=== PATIENT | male | born 1950 | race Caucasian/White ===

== ENCOUNTER 2016-11-06 10:04 | Day surgery (SDC) | payer OTHER ==
--- NOTE | 2016-11-03 12:23 | GHP ---
[f rep st] HISTORY AND PHYSICAL DATE OF ADMISSION: 11/06/2016 HISTORY OF PRESENT ILLNESS: The patient is a 65-year-old male who comes to our office for the first time after noticing an inguinal mass on the right side. It does not cause him any pain. He has no g enitourinary or gastrointestinal symptoms. He has never had surgery in this area of his body. He un derstands he might have a hernia and is trying to fit in his surgery between ski trips. ALLERGIES: No known drug allergies. MEDICATIONS: Methadone for restless legs, Lyrica, Synthroid, Wellbutrin, Xanax, Celebrex. ALLERGIES: No known drug allergies. SOCIAL HISTORY: The patient works in [employer]. He is with 4 children. PAST SURGICAL HISTORY: None. REVIEW OF SYSTEMS: He has negative 10-point systems. PHYSICAL EXAMINATION: GENERAL: The patient is a very pleasant male in no apparent distress. HEAD A ND NECK: Normocephalic, atraumatic. CHEST: CTA bilaterally. HEART: Regular rhythm and rate. ABD OMEN: Soft, nontender. There is a right inguinal mass that is soft and reducible, consistent with r ight inguinal hernia. EXTREMITIES: Normal pulses. No edema. IMPRESSION: 65-year-old male with right inguinal hernia. RECOMMENDATIONS: Laparoscopic right inguinal hernia repair was discussed with the patient in detail, including the risks of recurrence, infection, nerve injury, scrotal edema, pain. Also, we emphasize d the lifting/activity restrictions with this patient, as he does have a busy spring planned, with a couple of ski trips and fishing trips. The patient understands he will not be able to lift anything heavy for approximately 6 weeks. /[id number]/MODL
[~2016-11-06 10:04] MED LIST: ceFAZolin 2 GM/DEXTROSE 100 ML IV ONE
[2016-11-06] MEDS ORDERED: CEFAZOLIN 2 GM/DEXTROSE/100 ML BAG IV ONE (10:46)
[2016-11-06] MEDS ORDERED: LR 1,000 ML IV ONE (10:56)
[2016-11-06] MEDS ORDERED: BUPIVACAINE 0.5% 30 ML SDV ONE (10:59)
[2016-11-06] MEDS ORDERED: fentaNYL 250 MCG/5 ML INJ ONE (11:32)
[2016-11-06] MEDS ORDERED: PROPOFOL/EMULSION 500 MG/50 ML BOTTLE IV ONE (11:33)
[2016-11-06] MEDS ORDERED: MIDAZOLAM 2 MG/2 ML VIAL ONE (11:36)
[2016-11-06] MEDS ORDERED: ONDANSETRON 4 MG/2 ML VIAL ONE (11:39)
[2016-11-06] MEDS ORDERED: DEXAMETHASONE 4 MG/ML VIAL ONE (11:39)
[2016-11-06] MEDS ORDERED: ROCURONIUM 50 MG/5 ML VIAL ONE (11:39)
[2016-11-06] MEDS ORDERED: LIDOCAINE 2% 5 ML SDV ONE (11:39)
[2016-11-06] MEDS ORDERED: epHEDrine SULFATE 10 MG/ML SYR ONE (12:00)
[2016-11-06] MEDS ORDERED: SUGAMMADEX SODIUM 200 MG/2 ML VIAL IVP ONE (12:27)
[2016-11-06] MEDS ORDERED: fentaNYL 100 MCG/2 ML INJ ONE (12:52)
[2016-11-06] MEDS ORDERED: KETOROLAC 30 MG/1 ML SDV ONE (12:52)
--- NOTE | 2016-11-19 22:05 | GOP ---
[f rep st] OPERATIVE REPORT DATE OF OPERATION: 11/06/2016 SURGEON: Dave Mccormack MD [employer] DIRECTOR: DOREEN Batista ANESTHESIA: General endotracheal. ANESTHESIOLOGIST: Dr. Joe PREOPERATIVE DIAGNOSIS: Bilateral inguinal hernias. POSTOPERATIVE DIAGNOSIS: Bilateral inguinal hernias. PROCEDURE PERFORMED: Laparoscopic bilateral inguinal hernia repairs with mesh. FINDINGS: The patient was found have bilateral indirect inguinal hernias. The right was much great er than the left. DESCRIPTION OF PROCEDURE: Patient taken to the operating room, where he received satisfactory gener al endotracheal anesthesia by Dr. Joe. He was placed in the supine position, and prepped and draped in the usual sterile fashion. Infraumbilical incision was made, and dissection was carried down to the rectus sheath, which was in cised. A subfascial tunnel was developed in the preperitoneal space. It was replaced with a CO2 in sufflation trocar. Two other trocars were placed in the lower abdominal midline. Hoang's ligament was exposed bilaterally. The cords were mobilized bilaterally. The peritoneum wa s dissected off the cord structures. On the right, there was a very large indirect sac, which was d issected free and reduced. On the left, a much smaller sac was present and that also was reduced. Bilateral Covidien mesh patches of polyester were placed over the inguinal floors and were anchored in place with AbsorbaTack. On the right, a split patch was used to pass the limb around the cord st ructures. They were anchored to Hoang's ligament, to the lacunar ligament, to the anterior abdomin al wall, and the lateral abdominal wall outside the internal ring. Hemostasis was assured. Trocars were removed under direct vision and pneumopreperitoneum was released. Trocar sites were cl osed with 0 Vicryl for the fascia, 4-0 Monocryl subcuticular stitch for the skin. All layers were i nfiltrated with 0.5% Marcaine. Blood loss was negligible. There were no complications. /[id number]/MODL
== END 2016-11-06 15:00 | disposition home or self-care (01) ==
LOC: FSGY 10:04
PROVIDERS: ATTEND Surgery
PROC: 0YUA4JZ Supplement Bilateral Inguinal Region with Synthetic Substitute, Percutaneous Endoscopic Approach (ICD-10-PCS; principal; 2016-11-06 11:30)
DX: K40.20 Bilateral inguinal hernia, without obstruction or gangrene, not specified as recurrent (principal); E03.9 Hypothyroidism, unspecified; F41.9 Anxiety disorder, unspecified; G25.81 Restless legs syndrome
CPT/HCPCS: 49650; C1727; C1781; J0690; J1100; J1885; J2250; J2405; J2704; J3010

== ENCOUNTER → 2018-01-25 | Outpatient (CLI) | payer OTHER | LOC: FIMAGING 15:15 | PROVIDERS: ATTEND Internal Medicine | DX: J98.09 Other diseases of bronchus, not elsewhere classified (principal) ==

== ENCOUNTER → 2018-11-08 | Outpatient (CLI) | payer OTHER | LOC: FLAB 14:57 | PROVIDERS: ATTEND Nurse Practitioner Adult Health | DX: R05 Cough (principal) ==